=== PATIENT | male | born 2000 | race Caucasian/White ===

== ENCOUNTER 2020-05-23 15:16 | Emergency (ER) | payer OTHER ==
[~2020-05-23] VITALS: Ht 175.3 cm; Wt 87.5 kg
[2020-05-23 16:56] VITALS: BP 123/69
== END 2020-05-23 16:56 | disposition home or self-care (01) ==
LOC: ER 15:16
DX: S51.811A Laceration without foreign body of right forearm, initial encounter (principal); Z88.0 Allergy status to penicillin; W26.0XXA Contact with knife, initial encounter; Y93.89 Activity, other specified; Y92.89 Other specified places as the place of occurrence of the external cause; Y99.8 Other external cause status

== ENCOUNTER 2021-04-22 17:38 | Emergency (ER) | payer OTHER ==
[~2021-04-22] VITALS: Ht 175.3 cm; Wt 90.7 kg
[2021-04-22 18:27] LABS: ABSOLUTE NEUTROPHILS 4.4 thou/uL (1.4-8.2); BASOPHILS 0.3 % (0.0-2.0); EOSINOPHILS 0.8 % (0.0-3.0); HEMATOCRIT 47.5 % (42.0-52.0); LYMPHOCYTES 12.6 % (24.0-44.0); MCH 28.3 pg (26.0-34.0); MCHC 33.8 g/dL (28.0-37.0); MCV 83.9 fL (80.0-100.0); MONOCYTES 20.6 % (1.0-8.0); PLATELET COUNT 208 thou/uL (150-400); POLYS 65.7 % (36.0-66.0); RBC 5.66 mil/uL (4.50-6.00); RDW 13.8 % (10.5-14.5); WBC 6.7 thou/uL (4.0-11.0)
[2021-04-22 18:36] LABS: CALCIUM 9.2 mg/dL (8.5-10.1); CREATININE 1.2 mg/dL (0.7-1.3); POTASSIUM 3.7 mmol/L (3.5-5.1)
[2021-04-22 18:45] LABS: TOTAL BILIRUBIN 0.4 mg/dL (0.2-1.0); TOTAL PROTEIN 7.7 g/dL (6.4-8.2)
[2021-04-22 18:49] LABS: URINE BILIRUBIN NEGATIVE (Negative); URINE BLOOD NEGATIVE (Negative); URINE CLARITY CLEAR; URINE COLOR YELLOW; URINE GLUCOSE-RANDOM* NEGATIVE (Negative); URINE KETONES NEGATIVE (Negative); URINE LEUKOCYTES-REFLEX NEGATIVE (Negative); URINE NITRITE-REFLEX NEGATIVE (Negative); URINE PROTEIN (DIPSTICK) NEGATIVE (Negative); URINE SPECIFIC GRAVITY 1.025 (1.005-1.035); URINE UROBILINOGEN 0.2 E.U./dl (0.2-1.0)
[2021-04-22 20:02] VITALS: BP 136/78
--- NOTE | 2021-04-23 07:40 | EKG ---
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
== END 2021-04-22 20:14 | disposition home or self-care (01) ==
LOC: ER 17:38
PROVIDERS: Emergency Medicine; Nurse Practitioner Family
DX: U07.1 COVID-19 (principal); Z88.0 Allergy status to penicillin